=== PATIENT | female | born 2005 | race African-American/Black ===

== ENCOUNTER 2024-07-08 12:08 | Emergency (ER) | payer BC, SELFPAY ==
--- NOTE | ~2024-07-08 | XR_ITS ---
EXAMINATION: XR KNEE, RIGHT CLINICAL INFORMATION: Right knee pain. COMPARISON: None available. TECHNIQUE: Four views of the right knee. FINDINGS: No fracture or joint effusion. Alignment is anatomic. Joint spaces are maintained. No abnormal soft tissue calcification. XR/XR knee RT 4V IMPRESSION: No fracture or dislocation. No joint effusion. Electronically signed by: Dejuan Rojas DO 07/08/2024 03:09 PM EDT
[2024-07-08 13:07] VITALS: BP 107/67; PULSE 69; RESP 16; TEMP 36.6; O2SAT 97; BMI 19.1
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
[2024-07-08 15:54] VITALS: BP 107/67; PULSE 69; RESP 16; TEMP 36.6; O2SAT 97
== END 2024-07-08 16:10 | disposition home or self-care (01) ==
PROVIDERS: Emergency Provider Student in an Organized Health Care Education/Training Program
DX: S83.91XA Sprain of unspecified site of right knee, initial encounter (principal); M25.561 Pain in right knee; Y29.XXXA Contact with blunt object, undetermined intent, initial encounter; Y93.89 Activity, other specified; Y92.89 Other specified places as the place of occurrence of the external cause; Y99.8 Other external cause status
CPT/HCPCS: 73564; 99282; 99283

== ENCOUNTER 2024-08-05 13:21 | Emergency (ER) | payer BC, SELFPAY ==
--- NOTE | ~2024-08-05 | XR_ITS ---
EXAMINATION: XR CHEST CLINICAL INFORMATION: Shortness of breath COMPARISON: None available. TECHNIQUE: 2 views of the chest were obtained. FINDINGS: No consolidation, pleural effusion or pneumothorax. Cardiomediastinal silhouette is normal. Osseous structures are intact. S-shaped curvature of the thoracolumbar spine which could be positional. XR/XR chest 2V IMPRESSION: No acute airspace disease. Electronically signed by: Jorge Oliver MD 08/05/2024 02:33 PM EDT
[2024-08-05 13:35] VITALS: BP 108/69; PULSE 96; RESP 20; TEMP 36.9; O2SAT 100; BMI 19.2
--- NOTE | 2024-08-05 13:36 | ED_ITS ---
HPI - General Adult General Chief complaint: Dyspnea Stated complaint: Difficulty breathing Time Seen by Provider: 08/05/24 14:45 Source: patient Mode of arrival: ambulatory Limitations: no limitations History of Present Illness ED Provider: nelly CASTANEDA narrative: Patient is a 19-year-old female with history of asthma presenting to the emergency department with complaint of shortness of breath and chest tightness for the past 2 days. Has been using albuterol inhaler but symptoms not improving. Denies cough or fevers. Denies chest pain or palpitations. MD complaint: Shortness of breath Onset (ago): day(s) Treatments prior to arrival: other Related Data Previous Rx's ?Medication ?Instructions ?Recorded naproxen 500 mg tablet 500 mg PO BID PRN pain 7 days #14 07/08/24 tabs prednisone 20 mg tablet 40 mg (2 x 20 mg) PO DAILY #10 tabs 08/05/24 Allergies Allergy/AdvReac Type Severity Reaction Status Date / Time blueberry Allergy Rash Verified 08/05/24 13:38 seafood Allergy Angioedema Verified 08/05/24 13:38 Seasonal Allergies Allergy Watery Eye Verified 08/05/24 13:37 Review of Systems Review of Systems: As per HPI. Yes all other systems are reviewed and are negative Constitutional: Constitutional: Reports as per HPI PMF Social History Social History Advance Directives: No Advance Directives Information Provided: Yes Do you have a plan to hurt others: No Plan Physical Exam ED Vital Signs: Vital Signs - 24 hr 08/05/24 13:35 08/05/24 15:21 Temperature 98.5 F 98.4 F Pulse Rate 96 98 Respiratory Rate 20 16 Blood Pressure 108/69 107/61 Pulse Oximetry 100 100 Oxygen Delivery Method Room Air Room Air BMI result Body Mass Index 19.2 Vital signs have been reviewed and appear to be correct. Blood pressure normal. Heart rate normal. Respiratory rate normal. Temperature normal. Oxygen saturation normal. Const General: cooperative, healthy appearing and no acute distress Orientation/consciousness: oriented to person, oriented to place, oriented to time and patient oriented x3 Limitations: no limitations HENMT Head: Yes normocephalic and Yes atraumatic Ears: external ears normal General nose exam: Normal external nose present Face and sinus: Yes face symmetric Mouth: oropharynx normal and moist mucous membranes Throat: Yes uvula midline Eyes Pupils: Equal, round and reactive pupils present Neck Neck: Yes normal visual inspection and Yes supple Resp Effort & Inspection: normal respiratory effort and able to speak in complete sentences Auscultation: clear to auscultation bilaterally Cardio Rate: regular rate Rhythm: regular rhythm Heart sounds: S1 normal heart sound present and S2 normal heart sound present GI Palpation (GI): Soft to palpation and nontender Auscultation: normoactive bowel sounds General: Yes no CVA tenderness Back/Spine/Pelvis Back: no CVA tenderness Skin General skin exam: elasticity normal and turgor normal Neuro General: oriented to person, oriented to place, oriented to time, patient oriented x3, moves all extremities, no focal motor deficits and CN's II-XI intact bilaterally Cranial nerves: Yes Equal, round and reactive pupils present Cognition (Neuro): normal cognition Extrem General: Yes full ROM, Yes no pedal edema and Yes no calf tenderness Psych Mental Status: mental status grossly normal Affect: normal affect Thought process: Normal thought process present Course Course Course Narrative: RME, this is a rapid medical exam performed by Malvin Ramirez please refer to primary provider for complete H&P- 19-year-old female presents for evaluation of cough, shortness of breath for the last 2 days. She reports no improvement with her inhalers. Plan for viral swabs, chest x-ray Medical Decision Making Medical Decision Making [facility] Narrative: Patient is a 19-year-old female with history of [facility] complaint of shortness of breath and chest tightness for the past 2 days. On exam patient is awake, A+Ox3, VS WNL, afebrile, normal neurological exam without focal deficits, physical exam findings as above. Given reported symptoms and physical exam findings, initial differential includes viral illness, covid, flu, asthma exacerbation, bronchitis, pneumonia. Viral serology negative. X-ray chest notable for no evidence of pneumonia. My interpretation is in agreement with the radiologist's interpretation. Will treat with course of prednisone. Advised patient to continue using her albuterol inhaler as prescribed. Follow-up with PCP. Return precautions discussed. Patient verbalized understanding of and agreement with plan. Differential Diagnosis Differential Diagnoses: The differential diagnosis associated with the presentation includes As per [facility] Lab Data [facility] Lab Attestation statement: I reviewed the patient's lab results. As per [facility] Labs: Lab Results 08/05/24 Range/Units 14:02 COVID-19 (PAM) Negative (Negative) COVID-19 Clin Com See Note Influenza Type A (SHIRA) Negative (Negative) Influenza Type B (SHIRA) Negative (Negative) Influenza A & B Note See Note Independent Interpretation I performed an independent interpretation of an: Plain X-Ray Interpretation: No evidence of pneumonia on chest x-ray. Radiology Impression Discussion of test interpretation with radiology: I have reviewed the radiologist's reading. Radiologist Impression: XR/XR chest 2V IMPRESSION: No acute airspace disease. External Record Review External record reviewed: Inpatient record, Office record and Outpatient record Prescription Management I considered prescription management with: Other Discharge Plan Discharge Clinical Impression: Asthma with exacerbation Patient Disposition: Home, Self-Care Instructions: Asthma (DC) Additional Instructions: You were evaluated in the emergency department today for cough, wheezing and shortness of breath. You are being treated for an asthma exacerbation with a short course of steroids to decrease inflammation. Continue to use your inhaler as prescribed. Please follow-up with your primary care provider this week. Return to the emergency department if you develop worsening shortness of breath, difficulty breathing, chest pain, fever not improved with Tylenol or ibuprofen, or any other concerning symptoms. Prescriptions: New prednisone 20 mg tablet 40 mg PO DAILY Qty: 10 0RF No Action naproxen 500 mg tablet 500 mg PO BID PRN (Reason: pain) 7 Days Qty: 14 0RF Print Language: Yakut
[2024-08-05 14:30] LABS: COVID-19 Test Negative (Negative); IDNOW Serial# 152EDE1D
[2024-08-05 14:32] LABS: IDNOW Serial# 58CA691E; Influenza A Negative (Negative); Influenza B2 Negative (Negative)
[2024-08-05 15:21] VITALS: BP 107/61; PULSE 98; RESP 16; TEMP 36.9; O2SAT 100
[2024-08-05 16:53] VITALS: BP 107/61; PULSE 98; RESP 16; TEMP 36.9; O2SAT 100
== END 2024-08-05 16:53 | disposition home or self-care (01) ==
PROVIDERS: Physician Assistant; Emergency Provider Emergency Medicine
DX: J45.901 Unspecified asthma with (acute) exacerbation (principal); R06.00 Dyspnea, unspecified; R06.02 Shortness of breath; Z11.52 Encounter for screening for COVID-19; Z79.899 Other long term (current) drug therapy
CPT/HCPCS: 71046; 87502; 87635; 99283

== ENCOUNTER → 2024-08-05 13:36 | Outpatient (BNV) | payer BC, SELFPAY | PROVIDERS: Visit Provider Radiology Diagnostic Radiology | DX: R06.02 Shortness of breath (principal) | CPT/HCPCS: 71046 ==

== ENCOUNTER 2024-08-17 10:04 | Emergency (ER) | payer BC, SELFPAY ==
--- NOTE | ~2024-08-17 | CT_ITS ---
EXAMINATION: CT HEAD WITHOUT CONTRAST CLINICAL INFORMATION: posterior head injury, nose bleed COMPARISON: None available. TECHNIQUE: Contiguous axial imaging was performed from the skull base to vertex without intravenous administration of contrast. This CT examination was performed using dose optimization techniques as appropriate, variously including the following: *Automated exposure control *Adjustment of mA and/or kV according to patient size (this includes techniques or standardized protocols for targeted exams where dose is matched to indication/reason for exam; i.e. extremities or head) *Use of iterative reconstruction technique DLP: 601 mGy-cm FINDINGS: No acute intracranial hemorrhage, mass effect, midline shift, hydrocephalus or herniation. Ferguson-white matter differentiation is normal. Posterior cranial fossa contents demonstrated no acute intracranial hemorrhage or mass effect. Sellar/suprasellar region demonstrated no gross masses or hemorrhage. Bony calvarium is intact. Skull base is intact. No gross soft tissue contusion, soft tissue scalp. Tympanic cavities and mastoid cells are aerated. Pneumatized petrous apices, congenital. No air-fluid levels in the included paranasal sinuses. Pneumatized left pterygoid processes, congenital. CT/CT head/brain wo IV con IMPRESSION: No acute intracranial hemorrhage. No acute fracture, bony calvarium. Electronically signed by: Jorge Oliver MD 08/17/2024 02:27 PM [facility]
[2024-08-17 10:22] VITALS: BP 111/67; PULSE 67; RESP 18; TEMP 36.6; O2SAT 100; BMI 19.6
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
[2024-08-17] MEDS: Ketorolac Tromethamine 30 MG/ML VIAL IM (11:46)
[2024-08-17] MEDS: Metoclopramide HCl 10 MG TABLET PO (11:48)
[2024-08-17] MEDS: diphenhydrAMINE HCL 25 MG CAPSULE PO (11:48)
[2024-08-17 12:43] VITALS: BP 117/71; PULSE 71; RESP 15; TEMP 36.8; O2SAT 99
[2024-08-17 14:57] VITALS: BP 117/71; PULSE 71; RESP 15; TEMP 36.8; O2SAT 99
== END 2024-08-17 14:57 | disposition home or self-care (01) ==
PROVIDERS: Emergency Provider Emergency Medicine
DX: S06.0X0A Concussion without loss of consciousness, initial encounter (principal); Y29.XXXA Contact with blunt object, undetermined intent, initial encounter; R51.9 Headache, unspecified; Y93.89 Activity, other specified; Y92.89 Other specified places as the place of occurrence of the external cause; Y99.0 Civilian activity done for income or pay
CPT/HCPCS: 70450; 96372; 99283; 99284; J1885

== ENCOUNTER → 2024-08-17 11:06 | Outpatient (BNV) | payer BC, SELFPAY | PROVIDERS: Emergency Provider Emergency Medicine; Visit Provider Radiology Diagnostic Radiology | DX: R04.0 Epistaxis (principal); S09.90XA Unspecified injury of head, initial encounter | CPT/HCPCS: 70450 ==